=== PATIENT | male | born 1955 | race Caucasian/White ===

== ENCOUNTER 2018-05-04 06:39 | Day surgery (SDC) | payer MEDICAID ==
[~2018-05-04] VITALS: Ht 163.8 cm; Wt 74.4 kg
[2018-05-04 08:47] LABS: BASOPHILS % 1.1 % (0.0-2.0); HEMATOCRIT. 38.9 % (42.0-52.0); HEMOGLOBIN. 13.8 g/dL (14.0-18.0); LYMPHOCYTES % 15.5 % (20.0-50.0); MEAN CORPUSCULAR HEMOGLOBIN 32.7 pg (28.0-32.0); MONOCYTES % 8.4 % (2.0-8.0); RED BLOOD CELL COUNT 4.23 mill/uL (4.7-6.1); RED CELL DISTRIBUTION WIDTH 15.6 % (11.6-14.6)
[2018-05-04 08:55] LABS: INR 1.3; PARTIAL THROMBOPLASTIN TIME 32.3 sec (23.4-31.0); PROTHROMBIN TIME 12.7 sec (9.1-11.1)
[2018-05-04] MEDS ORDERED: LACTATED RINGERS 1,000 ML IV SCH (09:00)
[2018-05-04 09:16] LABS: CHLORIDE 109 mEq/L (98-107)
[2018-05-04] MEDS ORDERED: MIDAZOLAM HCL 2 MG/2 ML VIAL ONE (09:16)
[2018-05-04] MEDS ORDERED: PROPOFOL 200MG/20ML VIAL IV ONE (09:16)
[2018-05-04 09:18] LABS: PLATELET ESTIMATE MARKEDLY DECREASED
[2018-05-04] MEDS ORDERED: LIDOCAINE HCL/PF 1% 10 MG/ML 5ML VIAL ONE (09:19)
[2018-05-04 09:22] LABS: MEAN PLATELET VOLUME 8.3 fl (7.4-10.4); PLATELET 41 x1000/uL (130-400)
[2018-05-04] MEDS ORDERED: TIOT18CA3 IH (09:23)
[2018-05-04] MEDS ORDERED: ALBU18HF2 IH (09:23)
[2018-05-04] MEDS ORDERED: BENA40TA9 PO (09:43)
[2018-05-04] MEDS ORDERED: MULT-1146 PO (09:43)
[2018-05-04] MEDS ORDERED: RIFA550T PO (09:43)
[2018-05-04] MEDS ORDERED: MECL-109 PO (09:43)
[2018-05-04] MEDS ORDERED: FLUT1AER IH (09:43)
[2018-05-04] MEDS ORDERED: SIMETHICONE 40 MG/0.6 ML 30ML ONE (10:36)
[2018-05-04] MEDS ORDERED: ACETAMINOPHEN 500MG TABLET PO ONE (11:15)
[2018-05-04] MEDS ORDERED: ONDANSETRON HCL 4MG/2ML INJ IV PRN (11:15)
[2018-05-04] MEDS: IPRATROPIUM/ALBUTEROL 0.5-3(2.5)MG/3ML NEB INH SCH ×2 (11:50→13:05)
[2018-05-04] MEDS ORDERED: IPRATROPIUM/ALBUTEROL 0.5-3(2.5)MG/3ML NEB ONE (13:09)
== END 2018-05-04 14:00 | disposition home or self-care (01) ==
LOC: OR 06:39
PROVIDERS: ATTEND Internal Medicine Gastroenterology
DX: I85.00 Esophageal varices without bleeding (principal); K74.60 Unspecified cirrhosis of liver; K72.90 Hepatic failure, unspecified without coma; B18.2 Chronic viral hepatitis C; J44.9 Chronic obstructive pulmonary disease, unspecified; K44.9 Diaphragmatic hernia without obstruction or gangrene; K76.6 Portal hypertension; K31.89 Other diseases of stomach and duodenum; Z87.891 Personal history of nicotine dependence
CPT/HCPCS: 36415; 43235; 80048; 85025; 85610; 85730; 93005; 94640; J2250; J2704; J3490; J7620